=== PATIENT | male | born 1945 ===

== ENCOUNTER 2020-08-30 15:04 | Inpatient (IN) | payer MEDICARE, OTHER ==
[~2020-08-30] VITALS: Ht 172.7 cm; Wt 78.0 kg
[2020-08-30 16:20] VITALS: BP 109/59
[2020-08-30] MEDS ORDERED: LIPA1CAP4 PO ×2 (17:30→17:42)
[2020-08-30] MEDS ORDERED: INSU100I13 SQ (17:42)
[2020-08-30] MEDS ORDERED: DICY10CA3 PO (17:42)
[2020-08-30] MEDS ORDERED: MULT-658 PO (17:42)
[2020-08-30] MEDS ORDERED: FINA5TAB4 PO (17:42)
[2020-08-30] MEDS ORDERED: METF-734 PO (17:42)
[2020-08-30] MEDS ORDERED: PANT40TA6 PO (17:42)
[2020-08-30] MEDS ORDERED: GLIP5TAB22 PO (17:42)
[2020-08-30] MEDS ORDERED: ONDANSETRON ODT 4 MG PO PRN (18:00)
[2020-08-30] MEDS ORDERED: ENALAPRILAT 1.25 MG/ML, 2ML IVPush PRN (18:00)
[2020-08-30] MEDS ORDERED: METOCLOPRAMIDE 5 MG/ML, 2ML IVPush PRN (18:00)
[2020-08-30] MEDS ORDERED: HYDROcodone/APAP 5/325 TABLET PO PRN (18:00)
[2020-08-30] MEDS ORDERED: PLEASE ENTER ALLERGIES MC SCH (18:00)
[2020-08-30] MEDS ORDERED: PLEASE ENTER HEIGHT AND WEIGHT MC SCH (18:00)
[2020-08-30] MEDS ORDERED: MELATONIN 5 MG TABLET PO PRN (18:00)
[2020-08-30] MEDS ORDERED: ONDANSETRON 2MG/ML, 2ML IVPush PRN (18:00)
[2020-08-30] MEDS ORDERED: ACETAMINOPHEN 325 MG TABLET PO PRN (18:00)
[2020-08-30] MEDS ORDERED: ONDANSETRON 2MG/ML, 2ML ONE (18:16)
[2020-08-30] MEDS: SODIUM CHLORIDE 0.9% 1,000 ML IV SCH (18:23)
[2020-08-30 18:25] VITALS: BP 108/62
[2020-08-30] MEDS ORDERED: DEXTROSE 50%, 50ML SYRINGE IVPush PRN (20:00)
[2020-08-30] MEDS ORDERED: DEXTROSE 4 GM TAB.CHEW PO PRN (20:00)
[2020-08-30] MEDS ORDERED: GLUCAGON 1 MG IM PRN (20:00)
[2020-08-30] MEDS: SODIUM CHLORIDE FLUSH 10ML SYR IVF SCH (21:00)
[2020-08-30] MEDS: INSULIN LISPRO 100 UNITS/ML, PEN SQ-INSULIN SCH (22:11)
[2020-08-31 01:29] VITALS: BP 108/61
[2020-08-31 06:00] LABS: ALBUMIN 1.7 g/dL (3.4-5.0); ANION GAP 6 mmol/L (5-15); CALCIUM 7.4 mg/dL (8.5-10.1); CHLORIDE 108 mmol/L (98-107)
[2020-08-31] MEDS: PANTOPRAZOLE 40MG TABLET PO SCH (06:00)
[2020-08-31 06:04] LABS: BASOPHILS % (AUTO) 0 % (0-1); EOSINOPHILS % (AUTO) 1 % (1-7); LYMPHOCYTES % (AUTO) 9 % (22-44)
[2020-08-31 06:05] LABS: ALANINE AMINOTRANSFERASE 53 U/L (12-78); ALKALINE PHOSPHATASE 290 U/L (45-117); BILIRUBIN,TOTAL 2.5 mg/dL (0.2-1.0); CREATININE 1.01 mg/dL (0.7-1.3); TOTAL PROTEIN 5.4 g/dL (6.4-8.2)
[2020-08-31] MEDS: INSULIN LISPRO 100 UNITS/ML, PEN SQ-INSULIN SCH ×4 (07:00→20:50)
[2020-08-31] MEDS: SODIUM CHLORIDE 0.9% 1,000 ML IV SCH ×2 (07:18→20:38)
[2020-08-31 07:40] VITALS: BP 107/64
[2020-08-31 07:55] LABS: MEAN CORPUSCULAR HEMOGLOBIN 27.8 pg (27.5-34.5); MEAN CORPUSCULAR HGB CONC 33.2 g/dL (33.2-36.2); MEAN PLATELET VOLUME 9.8 fL (7.4-10.4); MONOCYTES % (AUTO) 12 % (2-9); NEUTROPHILS % (AUTO) 78 % (42-75); RED BLOOD COUNT 3.23 x10^6/uL (4.38-5.82); RED CELL DISTRIBUTION WIDTH 16.5 % (9.4-14.8)
[2020-08-31] MEDS: PANCRELIPASE 24,000 CAPSULE.DR PO SCH ×5 (08:00→17:16)
[2020-08-31] MEDS ORDERED: PANCRELIPASE 24,000 CAPSULE.DR PO SCH (08:00)
[2020-08-31 08:30] LABS: PLATELET COUNT 31 x10^3/uL (130-400)
[2020-08-31] MEDS ORDERED: CEFTRIAXONE 1,000 MG IM SCH (09:30)
[2020-08-31] MEDS: INSULIN GLARGINE 100 UNITS/ML, PEN SQ-INSULIN SCH (10:19)
[2020-08-31] MEDS: SODIUM CHLORIDE FLUSH 10ML SYR IVF SCH ×2 (10:20→20:38)
[2020-08-31] MEDS: FINASTERIDE 5 MG TABLET PO SCH (10:20)
[2020-08-31] MEDS: SENNA/DOCUSATE TABLET PO SCH (10:20)
[2020-08-31] MEDS: CEFTRIAXONE 1,000 MG in DEXTROSE 5% 50 ML IVPB SCH (10:29)
[2020-08-31 11:42] LABS: INTERNATIONAL NORMALIZED RATIO 1.15 (0.93-1.1); PROTHROMBIN TIME 12.3 Seconds (9.6-11.5)
[2020-08-31 14:45] VITALS: BP 110/63
[2020-08-31 19:11] VITALS: BP 116/61
[2020-08-31] MEDS: morphine SULFATE 10 MG/ML, 1ML IVPush PRN (20:49)
[2020-09-01 02:19] VITALS: BP 112/65
[2020-09-01 05:33] LABS: BASOPHILS % (AUTO) 0 % (0-1); EOSINOPHILS % (AUTO) 1 % (1-7); LYMPHOCYTES % (AUTO) 13 % (22-44); MEAN CORPUSCULAR HEMOGLOBIN 27.6 pg (27.5-34.5); MEAN CORPUSCULAR HGB CONC 32.9 g/dL (33.2-36.2); MONOCYTES % (AUTO) 14 % (2-9); NEUTROPHILS % (AUTO) 71 % (42-75); RED BLOOD COUNT 3.08 x10^6/uL (4.38-5.82); RED CELL DISTRIBUTION WIDTH 16.4 % (9.4-14.8)
[2020-09-01 05:38] LABS: PLATELET COUNT 35 x10^3/uL (130-400)
[2020-09-01 05:46] LABS: ALBUMIN 1.6 g/dL (3.4-5.0); ANION GAP 6 mmol/L (5-15); CALCIUM 7.4 mg/dL (8.5-10.1); CHLORIDE 109 mmol/L (98-107)
[2020-09-01 05:52] LABS: ALANINE AMINOTRANSFERASE 48 U/L (12-78); ALKALINE PHOSPHATASE 351 U/L (45-117); BILIRUBIN,TOTAL 2.3 mg/dL (0.2-1.0); CREATININE 0.84 mg/dL (0.7-1.3); TOTAL PROTEIN 5.3 g/dL (6.4-8.2)
[2020-09-01] MEDS: PANTOPRAZOLE 40MG TABLET PO SCH (06:07)
[2020-09-01] MEDS: PANCRELIPASE 24,000 CAPSULE.DR PO SCH ×5 (07:33→17:29)
[2020-09-01 07:36] VITALS: BP 112/63
[2020-09-01] MEDS: INSULIN LISPRO 100 UNITS/ML, PEN SQ-INSULIN SCH ×4 (07:56→23:16)
[2020-09-01] MEDS: FINASTERIDE 5 MG TABLET PO SCH (07:57)
[2020-09-01] MEDS: SENNA/DOCUSATE TABLET PO SCH (07:57)
[2020-09-01] MEDS: INSULIN GLARGINE 100 UNITS/ML, PEN SQ-INSULIN SCH (07:57)
[2020-09-01] MEDS: SODIUM CHLORIDE FLUSH 10ML SYR IVF SCH ×2 (07:58→21:00)
[2020-09-01] MEDS: SODIUM CHLORIDE 0.9% 1,000 ML IV SCH (08:56)
[2020-09-01] MEDS: CEFTRIAXONE 1,000 MG in DEXTROSE 5% 50 ML IVPB SCH (09:46)
[2020-09-01 13:40] VITALS: BP 122/59
[2020-09-01 20:05] VITALS: BP 120/69
[2020-09-02 01:35] VITALS: BP 114/62
[2020-09-02 06:04] LABS: CHLORIDE 110 mmol/L (98-107)
[2020-09-02 06:08] LABS: BASOPHILS % (AUTO) 0 % (0-1); EOSINOPHILS % (AUTO) 2 % (1-7); LYMPHOCYTES % (AUTO) 17 % (22-44); MEAN CORPUSCULAR HEMOGLOBIN 27.8 pg (27.5-34.5); MEAN CORPUSCULAR HGB CONC 33.5 g/dL (33.2-36.2); MEAN PLATELET VOLUME 10.1 fL (7.4-10.4); MONOCYTES % (AUTO) 18 % (2-9); NEUTROPHILS % (AUTO) 63 % (42-75); RED BLOOD COUNT 3.14 x10^6/uL (4.38-5.82); RED CELL DISTRIBUTION WIDTH 16.4 % (9.4-14.8)
[2020-09-02 06:15] LABS: ALANINE AMINOTRANSFERASE 38 U/L (12-78); ALBUMIN 1.6 g/dL (3.4-5.0); ALKALINE PHOSPHATASE 324 U/L (45-117); ANION GAP 7 mmol/L (5-15); BILIRUBIN,TOTAL 1.9 mg/dL (0.2-1.0); CALCIUM 7.6 mg/dL (8.5-10.1); CREATININE 0.77 mg/dL (0.7-1.3); TOTAL PROTEIN 5.3 g/dL (6.4-8.2)
[2020-09-02 06:17] LABS: PLATELET COUNT 34 x10^3/uL (130-400)
[2020-09-02] MEDS: INSULIN LISPRO 100 UNITS/ML, PEN SQ-INSULIN SCH ×6 (07:00→23:39)
[2020-09-02 07:15] VITALS: BP 114/63
[2020-09-02] MEDS: PANTOPRAZOLE 40MG TABLET PO SCH (07:32)
[2020-09-02] MEDS: PANCRELIPASE 24,000 CAPSULE.DR PO SCH ×5 (07:39→16:44)
[2020-09-02] MEDS: FINASTERIDE 5 MG TABLET PO SCH (07:45)
[2020-09-02] MEDS: INSULIN GLARGINE 100 UNITS/ML, PEN SQ-INSULIN SCH (07:45)
[2020-09-02] MEDS: SODIUM CHLORIDE FLUSH 10ML SYR IVF SCH ×2 (07:48→23:39)
[2020-09-02] MEDS: SENNA/DOCUSATE TABLET PO SCH (07:48)
[2020-09-02] MEDS: CEFTRIAXONE 1,000 MG in DEXTROSE 5% 50 ML IVPB SCH (10:06)
[2020-09-02 14:19] VITALS: BP 110/63
[2020-09-02] MEDS: morphine SULFATE 10 MG/ML, 1ML IVPush PRN (18:41)
[2020-09-02 19:52] VITALS: BP 128/74
[2020-09-03 00:59] VITALS: BP 113/66
[2020-09-03] MEDS: PANTOPRAZOLE 40MG TABLET PO SCH (06:35)
[2020-09-03 06:58] VITALS: BP 116/60
[2020-09-03] MEDS: INSULIN LISPRO 100 UNITS/ML, PEN SQ-INSULIN SCH ×2 (07:23→12:06)
[2020-09-03] MEDS: PANCRELIPASE 24,000 CAPSULE.DR PO SCH ×3 (07:29→12:05)
[2020-09-03] MEDS: SODIUM CHLORIDE FLUSH 10ML SYR IVF SCH (08:06)
[2020-09-03] MEDS: INSULIN GLARGINE 100 UNITS/ML, PEN SQ-INSULIN SCH (08:06)
[2020-09-03] MEDS: FINASTERIDE 5 MG TABLET PO SCH (08:06)
[2020-09-03] MEDS: SENNA/DOCUSATE TABLET PO SCH (08:07)
[2020-09-03] MEDS: morphine SULFATE 10 MG/ML, 1ML IVPush PRN (10:07)
[2020-09-03] MEDS: CEFTRIAXONE 1,000 MG in DEXTROSE 5% 50 ML IVPB SCH (10:07)
[2020-09-03] MEDS ORDERED: CEFD300C37 PO (10:08)
[2020-09-03] MEDS ORDERED: AMOX1TAB64 PO (10:08)
[2020-09-03] MEDS ORDERED: morphine SULFATE 15 MG TAB.IR PO PRN (11:30)
[2020-09-03] MEDS ORDERED: MORP15TA PO (11:32)
[2020-09-03 12:42] VITALS: BP 127/73
== END 2020-09-03 13:15 | disposition home or self-care (01) | DRG 444 ==
LOC: 4NE 16:26 → DCLOUNGE 09-03 12:58
PROVIDERS: ADMIT Hospitalist; ATTEND Internal Medicine
DX: K83.9 Disease of biliary tract, unspecified (principal); I81 Portal vein thrombosis; E11.9 Type 2 diabetes mellitus without complications; K83.1 Obstruction of bile duct; K86.89 Other specified diseases of pancreas; Z66 Do not resuscitate; Z85.07 Personal history of malignant neoplasm of pancreas; Z90.411 Acquired partial absence of pancreas; Z88.5 Allergy status to narcotic agent
CPT/HCPCS: 36415; 80053; 82962; 83735; 84100; 85025; 85610; 87040; G0378; J0696; J2405; J1815; J2270; J7030